=== PATIENT | male | born 1995 | race African-American/Black ===

== ENCOUNTER 2019-07-24 14:28 | Emergency (ER) | payer OTHER ==
[2019-07-24] MEDS ORDERED: Acetaminophen TAB* 325 MG PO ONE (14:35)
--- NOTE | 2019-07-24 14:36 | ED ---
Adult Trauma - HPI Summary HPI Summary: This patient is a 24 year old M KRISTINA via EMS to ED from snf with a chief complaint of attempted suicide by hanging since [employer]. Patient was found hanging in his cell. He was cut down and was found breathing but possibly unconscious. Patient was taken to the [facility], sent to ED for medical clearance. Patient arrives via EMS with C-collar in place. Patient is complaining of neck, back, and throat pain. Per EMS, this is the patients 4th suicide attempt this year. The patient rates the pain 8/10 in severity. Patient denies numbness or weakness in the bilateral upper and lower extremities, abdominal pain. - History of Current Complaint Stated Complaint: SUICIDE ATTEMPT PER CORRECTIONS Hx Obtained From: Patient, EMS Loss of Consciousness: brief (seconds) Onset of Pain: Post Accident Onset Severity: Severe Current Severity: Severe Pain Intensity: 8 Pain Scale Used: 0-10 Numeric Location: Neck, Back, Other - Throat Aggravating Factor(s): Nothing Alleviating Factor(s): Nothing Associated Signs & Symptoms: Negative: Numbness/Weakness Related History: Other: - Previous suicide attempt - Allergy/Home Medications Allergies/Adverse Reactions: Allergies Allergy/AdvReac Type Severity Reaction Status Date / Time No Known Allergies Allergy Verified 07/24/19 14:32 PMH/Surg Hx/FS Hx/Imm Hx Sensory History: Denies: Hx Legally Blind, Hx Deafness Opthamlomology History: Denies: Hx Legally Blind EENT History: Denies: Hx Deafness Psychiatric History: Reports: Hx Depression, Hx Suicide Attempt - Surgical History Surgery Procedure, Year, and Place: denies - Family History Known Family History: Negative: Blood Disorder - Social History Alcohol Use: Rare Hx Substance Use: Yes Substance Use Type: Reports: Marijuana Hx Tobacco Use: Yes Smoking Status (MU): Former Smoker Review of Systems ENT: Other - Throat pain Musculoskeletal: Other - Neck pain, low back pain Positive: Depressed All Other Systems Reviewed And Are Negative: Yes Physical Exam - Summary Physical Exam Summary: Constitutional: Well-developed, Well-nourished, Alert. (-) Distressed Skin: Warm, Dry HENT: Cervical collar in place, abrasion to anterior neck. Eyes: Conjunctiva normal Neck: Musculoskeletal ROM normal neck. (-) JVD, (-) Stridor, (-) Nuchal rigidity Cardio: Rhythm regular, rate normal, Heart sounds normal; Intact distal pulses; Radial pulses are 2+ and symmetric. (-) Murmur Pulmonary/Chest wall: Effort normal. (-) Respiratory distress, (-) Wheezes, (-) Rales Abd: Soft, (-) tenderness, (-) Distension, (-) Guarding, (-) Rebound Musculoskeletal: +Cervical spine tenderness, lower thoracic spine tenderness, lumbar spine tenderness Lymph: (-) Cervical adenopathy Neuro: Alert, Oriented x3. 5/5 strength in arms and legs. Sensation intact bilaterally. Psych: Withdrawn Triage Information Reviewed: Yes Vital Signs On Initial Exam: Initial Vitals Temp Pulse Resp BP Pulse Ox 97.7 F 64 16 132/70 99 07/24/19 14:31 07/24/19 14:31 07/24/19 14:31 07/24/19 14:31 07/24/19 14:31 Vital Signs Reviewed: Yes Procedures - Sedation Patient Received Moderate/Deep Sedation with Procedure: No Diagnostics - Laboratory Result Diagrams: 07/24/19 15:28 07/24/19 15:28 Lab Statement: Any lab studies that have been ordered have been reviewed, and results considered in the medical decision making process. - Radiology CXR Radiology Interpretation Completed By: Radiologist Summary of Radiographic Findings: NO ACTIVE CARDIOPULMONARY DISEASE IS NOTED. Dr. Harris has reviewed this radiology report. T-spine XR Radiology Interpretation Completed By: Radiologist Summary of Radiographic Findings: No fracture of the thoracic spine is noted. Dr. Harris has reviewed this radiology report. L-spine XR Radiology Interpretation Completed By: Radiologist Summary of Radiographic Findings: No fracture of the lumbar spine is noted. Dr. Harris has reviewed this radiology report. - CT C-spine CT Interpretation Completed By: Radiologist Summary of CT Findings: No fracture of the cervical spine is noted. Dr. Harris has reviewed this radiology report. Neck CTA CT Interpretation Completed By: Radiologist Summary of CT Findings: No evidence of carotid artery dissection. No evidence of vertebral artery. dissection. Carotid artery and vertebral arteries appear patent. Subclavian arteries are grossly unremarkable. Dr. Harris has reviewed this radiology report. Re-Evaluation - Re-Evaluation First Eval Re-Evaluation Time: 16:41 Comment: C Spine Clearance Note. Patient was evaluated today for clearance of C -spine precautions. Patient was awake and alert and cooperative for exam. Patient without neurologic symptoms or neck pain. Patient did not exhibit any focal tenderness to direct palpation of the cervical spine. Patient was able to move head in all directions without limitation in the range of motion or without inciting additional pain or discomfort. No midline tenderness. Denies pain, weakness or numbness with flexion, extension, or rotation of the neck. Gila collar removed. C-collar cleared by [employer]. Based on this examination, C-spine precautions are no longer required and may be discontinued. Second Eval Re-Evaluation Time: 17:36 Comment: Discussed results with patient. Patient will be discharged to [facility] with dx of suicide attempt by hanging. Psych clearance to occur at [facility]. Patient placed on suicidial precautions, informed guards at beside of this. Adult Trauma Course/Dx - Course Course Of Treatment: 24 -year-old male with a history of multiple suicidal attempts pain in the past, presents after hanging episode/attempted suicide. Possible syncope. AAOx3 here. Physical exam with abrasion across anterior neck , no difficulty in breathing, no stridor, no bruits. Patient reporting cervical neck and lower back pain. Plan for CT/CTA of neck, plain films of the back. Chest x-ray. - Diagnoses Provider Diagnoses: Suicide attempt by hanging Discharge ED - Sign-Out/Discharge Documenting (check all that apply): Patient Departure - Discharge - Discharge Plan Condition: Stable Disposition: HOME Patient Education Materials: Help Prevent Suicide (ED) Referrals: Anastasiya MILIAN,Levy Zamora [Primary Care Provider] - Additional Instructions: Jett was in the emergency department after suicidal attempt. His CT scan of his neck and CTA of his neck did not show any evidence of injuries. His plain film of his back were normal. Please have him evaluated by psychiatry on arrival to the [facility]. Please keep him on suicide watch/precautions until cleared. Return for neck pain, trouble breathing, numbness or tingling or if you are concerned. - Billing Disposition and Condition Condition: STABLE Disposition: Home - Attestation Statements Document Initiated by Scribe: Yes Documenting Scribe: Eliseo Lentz Provider For Whom Scribe is Documenting (Include Credential): Yola Harris MD Scribe Attestation: IEliseo, scribed for Yola Harris MD on 07/24/19 at 1856. Scribe Documentation Reviewed: Yes Provider Attestation: The documentation as recorded by the scribe, Eliseo Lentz accurately reflects the service I personally performed and the decisions made by me, Yola Harris MD Status of Scribe Document: Viewed
[2019-07-24 15:39] LABS: ABS Lymphocytes 1.1 10^3/ul (1.0-4.8); ABS Monocytes 0.5 10^3/ul (0-0.8); Eosinophil % 0.6 %; Hematocrit 43 % (42-52); Hemoglobin 14.1 g/dL (14.0-18.0); Mean Corpuscular HGB Conc 33 g/dL (31-36); Mean Corpuscular Hemoglobin 27 pg (27-31); Mean Corpuscular Volume 84 fL (80-94); Red Blood Count 5.15 10^6 /uL (4.18-5.48); Red Cell Distribution Width 15 % (10-15); White Blood Count 5.6 10^3/uL (3.5-10.8)
[2019-07-24 15:53] LABS: BUN/Creatinine Ratio 10.6 (8-20); Calcium 9.3 mg/dL (8.6-10.3); EGFR African American 94.9 (>60); EGFR Non-African American 78.4 (>60); Potassium 4.5 mmol/L (3.5-5.0)
[2019-07-24 16:05] LABS: Mean Platelet Volume 9.8 fL (7.4-10.4); Platelet Count 173 10^3/uL (150-450)
[2019-07-24] MEDS ORDERED: Iohexol 350* (CONTRAST) 500 ML MDV IV ONE (16:09)
[2019-07-24 18:12] VITALS: BP 120/52
== END 2019-07-24 17:43 | disposition home or self-care (01) ==
LOC: ED 14:28
DX: S19.80XA Other specified injuries of unspecified part of neck, initial encounter (principal); X83.8XXA Intentional self-harm by other specified means, initial encounter; Y92.143 Cell of prison as the place of occurrence of the external cause; F32.9 Major depressive disorder, single episode, unspecified; Z87.891 Personal history of nicotine dependence
CPT/HCPCS: 36415; 70498; 71045; 72070; 72100; 72125; 80048; 85025; 99284; A9270-GY; Q9967